=== PATIENT | female | born 1975 | race American Indian/Alaskan Native ===

== ENCOUNTER 2019-03-20 23:14 | Emergency (ER) | payer OTHER ==
[2019-03-21] MEDS ORDERED: DECADRON IM ONE (03:07)
[2019-03-21] MEDS ORDERED: TORADOL IM ONE (03:07)
--- NOTE | 2019-03-21 04:20 | Emergency Department Report ---
ED Back Pain/Injury HPI - General Chief Complaint: Back Pain/Injury Stated Complaint: BACK & LEG PAIN Time Seen by Provider: 03/21/19 03:35 Source: patient Limitations: No Limitations - History of Present Illness Initial Comments: Patient is a 42-year-old AA female with a history of chronic low back pain and sciatica who presents to the ED with complaint of acute exacerbation of her chronic low back pain radiating to her left leg persistently for the last 2 weeks, and which got worse 2 days ago. Patient states that the pain is constant and waxes and wanes, worse at night when she does not sleep. Patient states that she is unable to sleep because of diarrhea and radicular pain from the lumbar area to her left leg with a burning sensation and tingling. Patient states that in the last 2 days she has not been known to sleep despite taking qfjw-[id number] pain medications. Patient states that she has also been evaluated recently by her chiropractor who advised her to apply ice to her lower back minimize her pain. Patient denies dizziness, fall, traumatic injury, heavy lifting, fever, chills, nausea, vomiting, hematuria, dysuria, urinary frequency and urgency, saddle paresthesia, urinary or bowel incontinence or lower extremity weakness bilaterally. MD Complaint: back pain, other (chronic low back pain that radiates to left leg) -: Gradual, month(s) (6), unknown (Worsened in the last 1 week) Similar Symptoms Previously: Yes (chronic low back pain with left-sided sciatica) Place: home Radiation: left leg Severity: severe Severity scale (0 -10): 8 Quality: sharp, aching Consistency: constant Improves With: none Worsens With: none Context: other (spontaneous, chronic) Associated Symptoms: difficulty walking. denies: confusion, weakness, chest pain, cough, difficulty urinating, diaphoresis, incontinence, fever/chills, constipation, abdominal pain, loss of appetite, malaise, nausea/vomiting, rash, seizure, syncope Treatments Prior to Arrival: cold therapy - Related Data Previous Rx's Medication Instructions Recorded Last Taken Type Compression Panty, Lrg-Ext Lrg 1 each MC ONCE #1 unit 08/15/18 Unknown Rx [High Waist Panty] Carisoprodol [Soma] 350 mg PO Q8H PRN #30 tablet 05/15/19 Unknown Rx Gabapentin [Neurontin] 300 mg PO Q8HR PRN #30 capsule 03/21/19 Unknown Rx Ketoprofen 75 mg PO Q8H #24 capsule 03/21/19 Unknown Rx Prednisone [predniSONE 10 mg 10 mg PO .TAPER #1 tab.ds.pk 03/21/19 Unknown Rx (6-Day Pack, 21 Tabs)] Allergies Allergy/AdvReac Type Severity Reaction Status Date / Time No Known Allergies Allergy Unverified 08/15/18 10:16 ED Review of Systems ROS: Stated complaint: BACK & LEG PAIN Other details as noted in HPI Comment: All other systems reviewed and negative Constitutional: no symptoms reported, see HPI. denies: diaphoresis, fever Eyes: as per HPI. denies: eye discharge, vision change ENT: denies: as per HPI, ear pain, throat pain, dental pain, hearing loss, epistaxis Respiratory: no symptoms reported, see HPI. denies: cough, orthopnea, shortness of breath, SOB with exertion Cardiovascular: as per HPI. denies: chest pain, dyspnea on exertion, edema, syn cope, paroxysmal nocturnal dyspnea Endocrine: no symptoms reported, see HPI. denies: excessive sweating, flushing, intolerance to cold, increased hunger, increased thirst, unexplained weight gain Gastrointestinal: as per HPI. denies: abdominal pain, nausea, vomiting, diarrhea Genitourinary: as per HPI. denies: urgency, dysuria, frequency, hematuria, abnormal menses, dyspareunia Musculoskeletal: as per HPI, back pain (lower), arthralgia (left lower leg, left knee), myalgia Skin: as per HPI. denies: rash, lesions, change in color, change in hair/nails Neurological: as per HPI. denies: headache, weakness, numbness, paresthesias, confusion, abnormal gait, vertigo Psychiatric: as per HPI Hematological/Lymphatic: as per HPI ED Past Medical Hx - Past Medical History Previous Medical History?: Yes Hx Asthma: Yes - Surgical History Past Surgical History?: Yes Additional Surgical History: . HYSTERECTOMY - Social History Smoking Status: Never Smoker Substance Use Type: None - Medications Home Medications: Home Medications Medication Instructions Recorded Confirmed Last Taken Type Compression Panty, Lrg-Ext Lrg 1 each MC ONCE #1 unit 08/15/18 Unknown Rx [High Waist Panty] Carisoprodol [Soma] 350 mg PO Q8H PRN #30 tablet 03/21/19 Unknown Rx Gabapentin [Neurontin] 300 mg PO Q8HR PRN #30 capsule 03/21/19 Unknown Rx Ketoprofen 75 mg PO Q8H #24 capsule 03/21/19 Unknown Rx Prednisone [predniSONE 10 mg 10 mg PO .TAPER #1 tab.ds.pk 03/21/19 Unknown Rx (6-Day Pack, 21 Tabs)] ED Physical Exam - General Limitations: No Limitations General appearance: alert, in no apparent distress - Head Head exam: Present: atraumatic, normocephalic, normal inspection - Eye Eye exam: Present: normal appearance, PERRL, EOMI Pupils: Present: normal accommodation - ENT ENT exam: Present: normal exam, normal orophraynx, mucous membranes moist, TM's normal bilaterally, normal external ear exam - Neck Neck exam: Present: normal inspection, full ROM. Absent: tenderness, lymphadenopathy - Respiratory Respiratory exam: Present: normal lung sounds bilaterally. Absent: respiratory distress, wheezes, rales, chest wall tenderness, accessory muscle use, decreased breath sounds - Cardiovascular Cardiovascular Exam: Present: regular rate, normal rhythm, normal heart sounds - GI/Abdominal GI/Abdominal exam: Present: soft, normal bowel sounds. Absent: tenderness, rebound, rigid, hyperactive bowel sounds, hypoactive bowel sounds, organomegaly, pulsatile mass - Rectal Rectal exam: Present: deferred - Extremities Exam Extremities exam: Present: normal inspection, full ROM, tenderness (left lower leg diffuse palpable tenderness), normal capillary refill. Absent: pedal edema, joint swelling, calf tenderness - Back Exam Back exam: Present: normal inspection, tenderness (Palpable lumbosacral paraspinal musculoskeletal tenderness with limited ROM due to pain), muscle spasm, paraspinal tenderness. Absent: full ROM (due to severe pain), CVA tenderness (R), vertebral tenderness - Neurological Exam Neurological exam: Present: alert, oriented X3, CN II-XII intact, normal gait, reflexes normal - Psychiatric Psychiatric exam: Present: normal affect - Skin Skin exam: Present: warm, dry, intact, normal color ED Course Vital Signs 03/21/19 04:45 Pulse Rate 77 Respiratory 17 Rate O2 Sat by Pulse 100 Oximetry - Reevaluation(s) Reevaluation #1: 03/21/19 04:22 Patient is alert and oriented 3 and is not in any distress except pain. Patient was treated for pain in the ED and urinalysis also ordered. bASED ON THE patient's history and physical exam findings the patient's symptoms appear to be chronic from chronic low back pain and sciatica which has not been appropriately treated in the outpatient setting. Patient was treated in the ED with Decadron and Toradol, and will discharge home on more steroid Dosepak, and then felt her medications and muscle relaxants. On reevaluation, patient pain is better controlled, patient discharged home on pain medications, steroid Dosepak and a muscle relaxant and advised follow-up with her primary care physician in 5-7 days for reevaluation or return to the ED immediately if symptoms get worse. 03/21/19 07:14 ED Medical Decision Making - EKG Data Interpretation: normal EKG - Medical Decision Making Patient is alert and oriented 3 and is not in any distress except pain. Patient was treated for pain in the ED and urinalysis also ordered. bASED ON THE patient's history and physical exam findings the patient's symptoms appear to be chronic from chronic low back pain and sciatica which has not been appropriately treated in the outpatient setting. Patient was treated in the ED with Decadron and Toradol, and will discharge home on more steroid Dosepak, and then felt her medications and muscle relaxants. On reevaluation, patient pain is better controlled, patient discharged home on pain medications, steroid Dosepak and a muscle relaxant and advised follow-up with her primary care physician in 5-7 days for reevaluation or return to the ED immediately if symptoms get worse. 03/21/19 07:14 - Differential Diagnosis chronic back pain w/sciatica, Lumbar radiculopathy, Lumbar disc disease Critical care attestation.: If time is entered above; I have spent that time in minutes in the direct care of this critically ill patient, excluding procedure time. ED Disposition Clinical Impression: Acute exacerbation of chronic low back pain Chronic low back pain with left-sided sciatica Qualifiers: Back pain laterality: left Qualified Code(s): M54.42 - Lumbago with sciatica, left side Disposition: -01 TO HOME OR SELFCARE Is pt being admited?: No Does the pt Need Aspirin: No Condition: Stable Instructions: Sciatica (ED), Lumbar Radiculopathy (ED), Arthralgia (ED), Muscle Spasm (ED), Chronic Back Pain (ED) Additional Instructions: Take medications with food, drink plenty of fluids and follow up with your primary care physician in 5-7 days for reevaluation. Return to the ED imme diately if symptoms get worse. Prescriptions: Ketoprofen 75 mg PO Q8H #24 capsule Gabapentin [Neurontin] 300 mg PO Q8HR PRN #30 capsule PRN Reason: Pain , Severe (7-10) Prednisone [predniSONE 10 mg (6-Day Pack, 21 Tabs)] 10 mg PO .TAPER #1 tab.ds.pk Carisoprodol [Soma] 350 mg PO Q8H PRN #30 tablet PRN Reason: Spasms Referrals: HUMA BARKLEY MD [Primary Care Provider] - 3-5 Days Forms: Accompanied Note, Work/School Release Form(ED) Time of Disposition: 04:34 Print Language: LAO
== END 2019-03-21 04:45 | disposition home or self-care (01) ==
LOC: ED 23:14
DX: M54.42 Lumbago with sciatica, left side (principal); G89.29 Other chronic pain; J45.909 Unspecified asthma, uncomplicated; Z79.899 Other long term (current) drug therapy; Z90.710 Acquired absence of both cervix and uterus
CPT/HCPCS: 96372; 99282; J1100; J1885

== ENCOUNTER 2020-02-18 13:02 | Emergency (ER) | payer SELFPAY ==
[2020-02-18] MEDS ORDERED: ASPIRIN 325 MG TAB PO ONE (13:35)
[2020-02-18 13:36] VITALS: BP 170/105
--- NOTE | 2020-02-18 14:07 | XRay Report ---
CHEST 2 VIEWS INDICATION: sob. COMPARISON: None FINDINGS: Support devices: None. Heart: Within normal limits. Lungs/pleura: No acute air space or interstitial disease. No pneumothorax. Additional findings: None. IMPRESSION: No acute findings. Signer Name: Catalino Castanon Jr, MD Signed: 02/18/2020 2:03 PM Workstation Name: [id number]
[2020-02-18 14:45] LABS: Basophils % (Auto) 0.7 % (0.0-1.8); Eosinophils # (Auto) 0.1 K/mm3 (0.0-0.4); Eosinophils % (Auto) 2.3 % (0.0-4.3); Hematocrit 36.9 % (30.3-42.9); Lymphocytes # (Auto) 1.9 K/mm3 (1.2-5.4); Lymphocytes % (Auto) 29.4 % (13.4-35.0); Mean Corpuscular HGB Conc 32 % (30-34); Mean Corpuscular Volume 91 fl (79-97); Monocytes # (Auto) 0.4 K/mm3 (0.0-0.8); Monocytes % (Auto) 6.4 % (0.0-7.3); Platelet Count 344 K/mm3 (140-440); Red Blood Count 4.06 M/mm3 (3.65-5.03); Red Cell Distribution Width 15.9 % (13.2-15.2)
[2020-02-18 15:04] LABS: BUN/Creatinine Ratio 13; Blood Urea Nitrogen 12 mg/dL (7-17); Hemolysis Index 8
--- NOTE | 2020-02-18 15:12 | Emergency Department Report ---
ED General Adult HPI - General Chief complaint: Dyspnea/Respdistress Stated complaint: CHEST PAIN/CANT URINATE Time Seen by Provider: 02/18/20 14:27 Source: patient Mode of arrival: Ambulatory Limitations: No Limitations - History of Present Illness Initial comments: 44-year-old -Swiss female presents to the emergency room concern for fluid buildup with nausea shortness of breath x2 days. Patient states that she has chest discomfort and feels like pressure when she lies down. Patient also reports left leg swelling that she is noticed for 2 days with. Patient reports that the leg feels heavy and painful in the back. Patient also complains of urinary urgency denies any dysuria. Patient states that she took a Lasix from her fianc to see if she can get fluid off she reports that she had some increase in fluid output put. Patient reports a past medical history of asthma sinusitis and has had a hysterectomy. Onset/Timin -: days(s) Location: chest, lower extremity Severity scale (0 -10): 5 Quality: aching Consistency: constant Improves with: none Worsens with: other (lying down) Associated Symptoms: shortness of breath. denies: fever/chills, headaches, loss of appetite, nausea/vomiting, rash, seizure Treatments Prior to Arrival: none - Related Data Previous Rx's Medication Instructions Recorded Last Taken Type Compression Panty, Lrg-Ext Lrg 1 each MC ONCE #1 unit 08/15/18 Unknown Rx [High Waist Panty] Gabapentin 300 mg PO Q8HR PRN #30 capsule 03/21/19 Unknown Rx Ketoprofen 75 mg PO Q8H #24 capsule 03/21/19 Unknown Rx Prednisone [predniSONE 10 mg 10 mg PO .TAPER #1 tab.ds.pk 03/21/19 Unknown Rx (6-Day Pack, 21 Tabs)] carisoprodoL [Soma] 350 mg PO Q8H PRN #30 tablet 03/21/19 Unknown Rx Allergies Allergy/AdvReac Type Severity Reaction Status Date / Time No Known Allergies Allergy Unverified 08/15/18 10:16 ED Review of Systems ROS: Stated complaint: CHEST PAIN/CANT URINATE Other details as noted in HPI Comment: All other systems reviewed and negative ED Past Medical Hx - Past Medical History Previous Medical History?: Yes Hx Asthma: Yes - Surgical History Past Surgical History?: Yes Additional Surgical History: . HYSTERECTOMY - Social History Smoking Status: Never Smoker Substance Use Type: None - Medications Home Medications: Home Medications Medication Instructions Recorded Confirmed Last Taken Type Compression Panty, Lrg-Ext Lrg 1 each MC ONCE #1 unit 08/15/18 Unknown Rx [High Waist Panty] Gabapentin 300 mg PO Q8HR PRN #30 capsule 03/21/19 Unknown Rx Ketoprofen 75 mg PO Q8H #24 capsule 03/21/19 Unknown Rx Prednisone [predniSONE 10 mg 10 mg PO .TAPER #1 tab.ds.pk 03/21/19 Unknown Rx (6-Day Pack, 21 Tabs)] carisoprodoL [Soma] 350 mg PO Q8H PRN #30 tablet 03/21/19 Unknown Rx ED Physical Exam - General Limitations: No Limitations General appearance: alert, in no apparent distress, obese - Head Head exam: Present: atraumatic, normocephalic - Eye Eye exam: Present: normal appearance - ENT ENT exam: Present: mucous membranes moist - Neck Neck exam: Present: normal inspection, full ROM - Respiratory Respiratory exam: Present: normal lung sounds bilaterally. Absent: respiratory distress - Cardiovascular Cardiovascular Exam: Present: regular rate, normal rhythm. Absent: systolic murmur, diastolic murmur, rubs, gallop - GI/Abdominal GI/Abdominal exam: Present: soft. Absent: distended, tenderness, guarding - Expanded Lower Extremity Exam Left Hip exam: Present: normal inspection, full ROM Upper Leg exam: Present: swelling. Absent: tenderness Knee exam: Present: full ROM, swelling. Absent: tenderness Neuro vascular tendon exam: Present: no vascular compromise Gait: Positive: observed and normal - Back Exam Back exam: Present: normal inspection - Neurological Exam Neurological exam: Present: alert, oriented X3 - Psychiatric Psychiatric exam: Present: normal affect, normal mood - Skin Skin exam: Present: warm, dry, intact, normal color. Absent: rash ED Course Vital Signs 02/18/20 13:34 Temperature 98.1 F Pulse Rate 94 H Respiratory 20 Rate Blood Pressure 170/105 O2 Sat by Pulse 97 Oximetry ED Medical Decision Making - Lab Data Result diagrams: 02/18/20 14:25 02/18/20 14:25 Laboratory Tests 02/18/20 02/18/20 02/18/20 14:13 14:25 14:25 WBC 6.6 RBC 4.06 Hgb 12.0 Hct 36.9 MCV 91 MCH 29 MCHC 32 RDW 15.9 H Plt Count 344 Lymph % (Auto) 29.4 Putnam % (Auto) 6.4 Eos % (Auto) 2.3 Baso % (Auto) 0.7 Lymph # 1.9 Putnam # 0.4 Eos # 0.1 Baso # 0.0 Seg Neutrophils % 61.2 Seg Neutrophils # 4.0 D-Dimer Sodium 139 Potassium 3.4 L Chloride 102.9 Carbon Dioxide 24 Anion Gap 16 BUN 12 Creatinine 0.9 Estimated GFR > 60 BUN/Creatinine Ratio 13 Glucose 118 H Calcium 9.0 Troponin T < 0.010 Urine Color Yellow Urine Turbidity Clear Urine pH 6.0 Ur Specific Phillips 1.018 Urine Protein <15 mg/dl Urine Glucose (UA) Neg Urine Ketones Neg Urine Blood Neg Urine Nitrite Neg Urine Bilirubin Neg Urine Urobilinogen < 2.0 Ur Leukocyte Esterase Neg Urine WBC (Auto) 2.0 Urine RBC (Auto) 8.0 U Epithel Cells (Auto) 8.0 Urine Mucus 1+ 02/18/20 02/18/20 15:21 16:29 WBC RBC Hgb Hct MCV MCH MCHC RDW Plt Count Lymph % (Auto) Putnam % (Auto) Eos % (Auto) Baso % (Auto) Lymph # Putnam # Eos # Baso # Seg Neutrophils % Seg Neutrophils # D-Dimer 291.54 H Sodium Potassium Chloride Carbon Dioxide Anion Gap BUN Creatinine Estimated GFR BUN/Creatinine Ratio Glucose Calcium Troponin T < 0.010 Urine Color Urine Turbidity Urine pH Ur Specific Phillips Urine Protein Urine Glucose (UA) Urine Ketones Urine Blood Urine Nitrite Urine Bilirubin Urine Urobilinogen Ur Leukocyte Esterase Urine WBC (Auto) Urine RBC (Auto) U Epithel Cells (Auto) Urine Mucus - Radiology Data Radiology results: report reviewed Print Report Referring Physician:RAQUEL ALMAGUERPatient Name:ISAI CHESTERPatient ID:[id number] of :[id number]:FemaleAccession:[id number] Date:3072-13-30Aworqw Status:Finalized Findings [facility] [address] [place] [address] XRay Report Signed Patient: ISAI CHESTER MR#: [id number] : 1975 Acct:[id number] Age/Sex: 44 / F ADM Date: 02/18/20 Loc: ED Attending Dr: Ordering Physician: KAITY ABEL Date of Service: 02/18/20 Procedure(s): XR chest routine 2V Accession Number(s): [id number] cc: KAITY ABEL Fluoro Time In Minutes: CHEST 2 VIEWS INDICATION: sob. COMPARISON: None FINDINGS: Support devices: None. Heart: Within normal limits. Lungs/pleura: No acute air space or interstitial disease. No pneumothorax. Additional findings: None. IMPRESSION: No acute findings. Signer Name: Catalino Castanon Jr, MD Signed: 02/18/2020 2:03 PM Workstation Name: [id number] Transcribed By: TTR Dictated By: CATALINO CASTANON JR, MD Electronically Authenticated By: CATALINO CASTANON JR, MD Signed Date/Time: 02/18/20 1403 DD/ 1402 TD/TT: Print Report Referring Physician:RAQUEL ALMAGUERPatient Name:ISAI CHESTERPatient ID:[id number] of :[id number]:FemaleAccession:[id number] Date:8487-29-33Efergy Status:Finalized Findings [facility] [address] [place] [address] Vascular Lab Report Signed Patient: ISAI CHESTER MR#: [id number] : 1975 Acct:[id number] Age/Sex: 44 / F ADM Date: 02/18/20 Loc: ED Attending Dr: Ordering Physician: KAITY ABEL Date of Service: 02/18/20 Procedure(s): VL venous duplex LE LT Accession Number(s): [id number] cc: KAITY ABEL DUPLEX DOPPLER LOWER EXTREMITY VEINS, LEFT INDICATION: Left leg swelling greater than right with heavines. TECHNIQUE: Duplex doppler imaging was performed through the veins of the left lower extremity using venous compression and other maneuvers. COMPARISON: None available. FINDINGS: Common Femoral vein: Negative. Femoral vein: Negative. Popliteal vein: Negative. Calf veins: Negative. Additional findings: None. IMPRESSION: 1. No sonographic evidence for DVT in the left lower extremity. Signer Name: Adam Webber MD Signed: 02/18/2020 4:45 PM Workstation Name: [id number] Transcribed By: TL Dictated By: Adam Webber MD Electronically Authenticated By: Adam Webber MD Signed Date/Time: 02/18/201644 DD/ 44 TD/TT: - Medical Decision Making 44-year-old -Swiss female presents to the emergency room concern for fluid buildup with nausea shortness of breath x2 days. Patient states that she has chest discomfort and feels like pressure when she lies down. Patient also reports left leg swelling that she is noticed for 2 days with. Patient reports that the leg feels heavy and painful in the back. Patient also complains of uri nary urgency denies any dysuria. Patient states that she took a Lasix from her fianc to see if she can get fluid off she reports that she had some increase in fluid output put. Patient reports a past medical history of asthma sinusitis and has had a hysterectomy. CBC, CMP, d-dimer, chest x-ray, ultrasound of left leg. Chest x-ray is within normal limits ultrasound is negative for any DVT. CBC CMP stable. Vital signs are stable. Patient be discharged home to follow-up with her primary care provider. Critical care attestation.: If time is entered above; I have spent that time in minutes in the direct care of this critically ill patient, excluding procedure time. ED Disposition Clinical Impression: Chest pressure, SOB (shortness of breath), Left leg swelling, Severely overweight Disposition: -01 TO HOME OR SELFCARE Is pt being admited?: No Does the pt Need Aspirin: No Condition: Stable Instructions: Obesity (ED), Dyspnea (ED), Chest Pain (ED) Additional Instructions: Chest x-ray is negative for any acute findings. Ultrasound of your left leg shows no DVT/clot. Labs are stable. Follow-up with your primary care provider if your symptoms persist or gets worse. You can take Tylenol or ibuprofen as needed for pain management. Referrals: RAUL BECKHAM MD [Primary Care Provider] - 3-5 Days KELLI DILLON MD [Staff Physician] - 3-5 Days [facility] - [facility]-5 Days Forms: Work/School Release Form(ED)
[2020-02-18 15:33] LABS: Bilirubin,Urine NEG (Negative); Blood,Urine NEG (Negative); Color,Urine Yellow (Yellow); Mucus,Urine 1+ /HPF; Protein,Urine <15 mg/dL mg/dL (Negative); Urobilinogen,Urine < 2.0 mg/dL (<2.0)
--- NOTE | 2020-02-18 16:49 | Vascular Lab Report ---
DUPLEX DOPPLER LOWER EXTREMITY VEINS, LEFT INDICATION: Left leg swelling greater than right with heavines. TECHNIQUE: Duplex doppler imaging was performed through the veins of the left lower extremity using venous compr ession and other maneuvers. COMPARISON: None available. FINDINGS: Common Femoral vein: Negative. Femoral vein: Negative. Popliteal vein: Negative. Calf veins: Negative. Additional findings: None. IMPRESSION: 1. No sonographic evidence for DVT in the left lower extremity. Signer Name: Adam Webber MD Signed: 02/18/2020 4:45 PM Workstation Name: [id number]
== END 2020-02-18 18:06 | disposition home or self-care (01) ==
LOC: ED 13:02
DX: R07.89 Other chest pain (principal); R06.02 Shortness of breath; M79.89 Other specified soft tissue disorders; E66.3 Overweight; J45.909 Unspecified asthma, uncomplicated; Z68.41 Body mass index [BMI] 40.0-44.9, adult; Z98.890 Other specified postprocedural states; Z90.710 Acquired absence of both cervix and uterus; Z79.899 Other long term (current) drug therapy
CPT/HCPCS: 36415; 71046; 80048; 81001; 84484; 85025; 85379; 87086; 93005; 93010